=== PATIENT | female | born 1955 | race Caucasian/White ===

== ENCOUNTER 2017-04-24 10:32 | Inpatient (IN) | payer OTHER ==
[2017-04-24 11:18] VITALS: BMI 20.7
--- NOTE | 2017-04-24 11:51 | HP ---
COWS - Scale Resting Pulse: 2= [place] 101-120 Sweatin= Chills/Flushing Restless Observation: 1= Difficult to Sit Still Pupil Size: 0= Normal to Room Light Bone or Joint Aches: 2= Severe Diffuse Aches Runny Nose/ Eye Tearin= Runny Nose/Eyes GI Upset > 30mins: 2= Nausea/Diarrhea Tremor Observation: 2= Slight Tremor Visible Yawning Observation: 1= 1-2x During Session Anxiety or Irritability: 1=Feels Anxious/Irritable Goose Flesh Skin: 0=Smooth Skin COWS Score: 14 Admission ROS BHS - HPI Chief Complaint: I'm too old, I need to stop, I just want to feel better and learn my lesson. My family doesn't know, my daughter is a nurse - she'd if she knew, they just think I'm getting old Allergies/Adverse Reactions: Allergies Allergy/AdvReac Type Severity Reaction Status Date / Time No Known Allergies Allergy Verified 04/24/17 11:42 History of Present Illness: 61 yo woman here for detox from oxycodone - no seizures, no black outs, previous detox here 2013 - relapsed after mom also in 2013. Never on suboxone or methadone program. Exam Limitations: Clinical Condition - Ebola screening Have you traveled outside of the country in the last 21 days: No (N) Have you had contact with anyone from an Ebola affected area: No Have you been sick,other than usual withdrawal symptoms: No Do you have a fever: No - Review of Systems Constitutional: Loss of Appetite, Changes in sleep, Weakness EENT: reports: Blurred Vision, Nose Congestion Respiratory: reports: SOB with Exertion Cardiac: reports: No Symptoms Reported GI: reports: Nausea, Poor Fluid Intake : reports: Frequency, Flank Pain Musculoskeletal: reports: Back Pain, Muscle Pain Integumentary: reports: No Symptoms Reported Neuro: reports: Headache, Tremors Endocrine: reports: No Symptoms Reported Hematology: reports: No Symptoms Reported Psychiatric: reports: Judgement Intact, Mood/Affect Appropiate, Orientated x3, Anxious Other Systems: Reviewed and Negative Patient History - Patient Medical History Hx Anemia: No Hx Asthma: No Hx Chronic Obstructive Pulmonary Disease (COPD): Yes (not treated ) Hx Cardiac Disorders: No Hx Hypertension: No Hx Hypercholesterolemia: No HX Cerebrovascular Accident: No Hx Seizures: No Hx Diabetes: No Hx Gastrointestinal Disorders: No Hx Genitourinary Disorders: No Hx Sexually Transmitted Disorders: No Hx Renal Disease (ESRD): No Hx Thyroid Disease: No Hx Human Immunodeficiency Virus (HIV): No Hx Hepatitis C: No Hx Depression: Yes (since mother's 2013) Hx Suicide Attempt: No Hx Schizophrenia: No - Patient Surgical History Past Surgical History: Yes Hx Neurologic Surgery: No Hx Cataract Extraction: No Hx Cardiac Surgery: No Hx Lung Surgery: No Hx Breast Surgery: No Hx Breast Biopsy: No Hx Abdominal Surgery: No Hx Appendectomy: No Hx Cholecystectomy: No Hx Genitourinary Surgery: No Hx Section: No Hx Orthopedic Surgery: No Other Surgical History: TUBAL IN 1975 Anesthesia Reaction: No - PPD History Previous Implant?: Yes Documented Results: Negative w/proof Implanted On Prior [facility] Admission?: Yes Date: 06/07/13 Results: 0mm PPD to be Administered?: Yes - Reproductive History Patient is a Female of Child Bearing Age (11 -55 yrs old): No Patient : No - Smoking Cessation Smoking history: Current every day smoker Have you smoked in the past 12 months: Yes Aproximately how many cigarettes per day: 4 Hx Chewing Tobacco Use: No Initiated information on smoking cessation: Yes 'Breaking Loose' booklet given: 04/24/17 (give on floor) - Substance & Tx. History Hx Alcohol Use: No Hx Substance Use: Yes Substance Use Type: Opiates Hx Substance Use Treatment: Yes (detox) - Substances Abused percocet Route: Oral Frequency: Daily Amount used: ten percocet 10/325 mg tabs Age of first use: 58 Date of Last Use: 04/21/17 marijuana Route: Smoking Frequency: 1-3 times last 30 days Amount used: unknown Age of first use: 21 Date of Last Use: 04/17/17 Family Disease History - Family Disease History Family Disease History: Heart Disease: Mother (, HOLE IN HEART), Other: Father (, brain aneurysm), Brother (two brothers - healthy, ? etoh), Son (one - adult - healthy), Daughter (one - adult - healthy) Admission Physical Exam BHS - Vital Signs Vital Signs: Vital Signs - 24 hr 04/24/17 11:00 Temperature 97.6 F Pulse Rate 112 H Respiratory 18 Rate Blood Pressure 148/89 - Physical General Appearance: Yes: Nourished, Appropriately Dressed, Moderate Distress, Anxious HEENTM: Yes: EOMI, Hearing grossly Normal, Normocephalic, Normal Voice, Pharynx Normal Respiratory: Yes: No Respiratory Distress, Wheezing Neck: Yes: No masses,lesions,Nodules Breast: Yes: Breast Exam Deferred Cardiology: Yes: Regular Rhythm, Regular Rate Abdominal: Yes: Flat, Soft Genitourinary: Yes: Hesitency Back: Yes: Normal Inspection Musculoskeletal: Yes: full range of Motion, Gait Steady, Back pain, Muscle Pain Extremities: Yes: Normal Inspection, Normal Range of Motion, Non-Tender, Tremors Neurological: Yes: Fully Oriented, Alert, Normal Mood/Affect, Normal Response Integumentary: Yes: Normal Color, Warm Lymphatic: Yes: Within Normal Limits - Diagnostic (1) Opioid dependence with withdrawal Current Visit: Yes Status: Chronic (2) Emphysematous COPD Current Visit: Yes Status: Chronic Qualifiers: Emphysema type: unspecified Qualified Code(s): J43.9 - Emphysema, unspecified (3) Nicotine dependence Current Visit: Yes Status: Chronic Qualifiers: Nicotine product type: cigarettes (4) Dehydration Current Visit: Yes Status: Chronic Cleared for Admission [facility] - Detox or Rehab [facility] Level of Care: Medically Managed Detox Regimen/Protocol: Methadone [facility] Breath Alcohol Content Breath Alcohol Content: 0 Urine Pregancy Test - Result Urine Test Results: Negative- NO Line Present Urine Drug Screen - Results Urine Drug Screen Results: THC-Marijuana, BAR-Barbiturates, MTD-Methadone, TCA- Tricyclic Antidepress, OXY-Oxycodone
[2017-04-24] MEDS ORDERED: ACETAMINOPHEN 325 MG TABLET (FP) PO PRN (12:01)
[2017-04-24] MEDS ORDERED: IBUPROFEN 400 MG TABLET (FP) PO PRN (12:01)
[2017-04-24] MEDS ORDERED: LOPERAMIDE HCL 2 MG CAPSULE PO PRN (12:01)
[2017-04-24] MEDS ORDERED: P-EPHED 60MG/TRIPROLIDI 2.5MG TABLET PO PRN (12:01)
[2017-04-24] MEDS ORDERED: MENTHOL/PHENOL 1 EACH UD MM PRN (12:01)
[2017-04-24] MEDS ORDERED: MAGNESIUM HYDROX 2400MG/30ML ORAL SUSPENSION 30 ML CUP PO PRN (12:01)
[2017-04-24] MEDS ORDERED: MAGNESIUM CITRATE 300 ML BOTTLE PO PRN (12:01)
[2017-04-24] MEDS ORDERED: NICOTINE POLACRILEX 2 MG GUM BUC PRN (12:01)
[2017-04-24] MEDS ORDERED: guaiFENesin/D-METHORPHAN HB 10 ML UNIT-DOSE CUPS PO PRN (12:01)
[2017-04-24] MEDS ORDERED: MAG HYDROX/AL HYDROX/SIMETH 30 ML UNIT-DOSE CUP PO PRN (12:01)
[2017-04-24] MEDS ORDERED: ALBUTEROL SO4 2.5/IPRATROPIUM 0.5 INH SOL 3 ML VIAL.NEB. NEB PRN (12:04)
[2017-04-24] MEDS ORDERED: ALBUTEROL SO4 18 GM HFA INHALER IH PRN (12:05)
[2017-04-24] MEDS ORDERED: METHADONE HCL 10 MG TABLET (FOR DETOX USE ONLY) PO ONE ×3 (13:30→23:00)
[2017-04-24] MEDS: diazePAM 5 MG TABLET PO PRN ×2 (17:15→22:45)
[2017-04-24 18:16] LABS: URINE APPEARANCE TURBID; URINE BILIRUBIN NEGATIVE (NEGATIVE); URINE BLOOD NEGATIVE (NEGATIVE); URINE COLOR AMBER; URINE GLUCOSE (UA) NEGATIVE (NEGATIVE); URINE KETONE TRACE (NEGATIVE); URINE NITRITE NEGATIVE (NEGATIVE); URINE UROBILINOGEN NEGATIVE mg/dL (0.2-1.0)
[2017-04-24 18:17] LABS: URINE LEUK ESTERASE 1+ (NEGATIVE); URINE PROTEIN 1+ (NEGATIVE)
[2017-04-24 18:19] LABS: URINE BACTERIA MODERATE /hpf (NONE SEEN); URINE HYALINE CAST 33 /lpf; URINE MUCUS MANY
[2017-04-24] MEDS: THIAMINE HCL 100 MG TABLET (FP) PO SCH (22:45)
[2017-04-25] MEDS: diazePAM 5 MG TABLET PO PRN ×3 (06:03→17:32)
--- NOTE | 2017-04-25 09:04 | PN ---
BHS COWS - Scale Resting Pulse: 1= [place] 81-100 Sweatin= Chills/Flushing Restless Observation: 1= Difficult to Sit Still Pupil Size: 0= Normal to Room Light Bone or Joint Aches: 2= Severe Diffuse Aches Runny Nose/ Eye Tearin= Runny Nose/Eyes GI Upset > 30mins: 1= Stomach Cramp Tremor Observation of Outstretched Hands: 2= Slight Tremor Visible Yawning Observation: 2= >3x During Session Anxiety or Irritability: 1=Feels Anxious/Irritable Goose Flesh Skin: 0=Smooth Skin COWS Score: 13 BHS Progress Note (SOAP) Subjective: sweat joint ache muscle pain gi distress tremor restlessness irritable anxiety agitative Objective: 04/25/17 09:03 Vital Signs Temperature 96.4 F L 04/25/17 07:53 Pulse Rate 88 04/25/17 07:53 Respiratory Rate 18 04/25/17 07:53 Blood Pressure 128/94 04/25/17 07:53 O2 Sat by Pulse Oximetry (%) Laboratory Last Values Urine Color Mirtha 04/24/17 18:05 Urine Appearance Turbid 04/24/17 18:05 Urine pH 5.0 (5.0-8.0) 04/24/17 18:05 Ur Specific [place] 1.025 (1.001-1.035) 04/24/17 18:05 Urine Protein 1+ (NEGATIVE) H 04/24/17 18:05 Urine Glucose (UA) Negative (NEGATIVE) 04/24/17 18:05 Urine Ketones Trace (NEGATIVE) H 04/24/17 18:05 Urine Blood Negative (NEGATIVE) 04/24/17 18:05 Urine Nitrite Negative (NEGATIVE) 04/24/17 18:05 Urine Bilirubin Negative (NEGATIVE) 04/24/17 18:05 Urine Urobilinogen Negative mg/dL (0.2-1.0) 04/24/17 18:05 Ur Leukocyte Esterase 1+ (NEGATIVE) H 04/24/17 18:05 Urine WBC (Auto) 19 /hpf (3-5) 04/24/17 18:05 Urine RBC (Auto) 2 /hpf (0-3) 04/24/17 18:05 Urine Bacteria Moderate /hpf (NONE SEEN) 04/24/17 18:05 Hyaline Casts 33 /lpf 04/24/17 18:05 Urine Mucus Many 04/24/17 18:05 lab noted repeat ua Assessment: 04/25/17 09:04 withdrawal sx Plan: continue detox increase oral fluid repeat ua
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
[2017-04-25] MEDS ORDERED: METHADONE HCL 10 MG TABLET (FOR DETOX USE ONLY) PO ONE (10:00)
[2017-04-25] MEDS: hydrOXYzine PAMOATE 50 MG CAPSULE (FP) PO PRN (10:25)
[2017-04-25] MEDS: PRENATAL VITAMINS W/ FOLIC ACID TABLET (FP) PO SCH (10:27)
[2017-04-25] MEDS: ASPIRIN 81 MG CHEWABLE TABLETS PO SCH (10:27)
[2017-04-25 10:51] LABS: HEMATOCRIT 42.7 % (32.4-45.2); HEMOGLOBIN 14.6 GM/dL (10.7-15.3); MCH 32.2 pg (25.7-33.7); MCHC 34.2 g/dl (32.0-36.0); MEAN CELL VOLUME 94.2 fl (80-96); MEAN PLT VOLUME 8.1 fl (7.5-11.1); PLATELET COUNT 385 K/MM3 (134-434); RBC 4.54 M/mm3 (3.60-5.2); RDW 13.3 % (11.6-15.6); WHITE BLOOD COUNT 9.9 K/mm3 (4.0-10.0)
[2017-04-25 10:56] LABS: ALBUMIN 3.8 g/dl (3.4-5.0); ANION GAP 14 (8-16); BILIRUBIN,TOTAL 0.5 mg/dL (0.2-1.0); BLOOD UREA NITROGEN 24 mg/dL (7-18); CALCIUM 8.6 mg/dL (8.5-10.1); CHLORIDE 89 mmol/L (98-107); CO2 34 mmol/L (21-32); GLUCOSE,RANDOM 78 mg/dL (74-106); POTASSIUM 3.6 mmol/L (3.5-5.1); SGOT/AST 13 U/L (15-37); SGPT/ALT 15 U/L (12-78); SODIUM 137 mmol/L (136-145); TOT PROT 7.4 g/dl (6.4-8.2)
[2017-04-25 10:57] LABS: ALK PHOS 111 U/L (45-117)
[2017-04-25 17:43] LABS: URINE APPEARANCE TURBID; URINE BILIRUBIN NEGATIVE (NEGATIVE); URINE BLOOD NEGATIVE (NEGATIVE); URINE COLOR AMBER; URINE GLUCOSE (UA) NEGATIVE (NEGATIVE); URINE KETONE NEGATIVE (NEGATIVE); URINE NITRITE NEGATIVE (NEGATIVE); URINE UROBILINOGEN NEGATIVE mg/dL (0.2-1.0)
[2017-04-25 17:45] LABS: URINE LEUK ESTERASE 3+ (NEGATIVE); URINE PROTEIN 1+ (NEGATIVE)
[2017-04-25 17:49] LABS: EPI CELLS RARE /HPF (FEW); URINE BACTERIA MODERATE /hpf (NONE SEEN); URINE HYALINE CAST 26 /lpf; URINE MUCUS FEW
[2017-04-25] MEDS: THIAMINE HCL 100 MG TABLET (FP) PO SCH (22:55)
--- NOTE | 2017-04-26 00:12 | EKG ---
Test Reason : Blood Pressure : / mmHG Vent. Rate : 091 BPM Atrial Rate : 091 BPM P-R Int : 110 ms QRS Dur : 090 ms QT Int : 344 ms P-R-T Axes : 034 080 043 degrees QTc Int : 423 ms SINUS RHYTHM WITH SINUS ARRHYTHMIA WITH SHORT TN OTHERWISE NORMAL ECG NO PREVIOUS ECGS AVAILABLE Confirmed by BRANDI YI MD ([id number]) on 04/26/2017 12:11:51 AM Referred By: Confirmed By:BRANDI YI MD
[2017-04-26] MEDS: diazePAM 5 MG TABLET PO PRN ×5 (05:36→22:43)
[2017-04-26] MEDS ORDERED: CYCLOBENZAPRINE HCL 10 MG TABLET (FP) PO ONE (08:32)
[2017-04-26] MEDS ORDERED: cloNIDine HCL 0.1 MG TABLET PO ONE (08:33)
[2017-04-26] MEDS: ASPIRIN 81 MG CHEWABLE TABLETS PO SCH (09:43)
[2017-04-26] MEDS: PRENATAL VITAMINS W/ FOLIC ACID TABLET (FP) PO SCH (09:43)
[2017-04-26] MEDS ORDERED: METHADONE HCL 5 MG TABLET (FOR DETOX USE ONLY) PO ONE (10:00)
[2017-04-26] MEDS: cloNIDine HCL 0.1 MG TABLET PO SCH ×2 (10:00→22:20)
--- NOTE | 2017-04-26 11:24 | PN ---
BHS COWS - Scale Resting Pulse: 0= [place] 80 or Below Sweatin= Chills/Flushing Restless Observation: 3= Extraneous Movement Pupil Size: 1= Pupils >than Normal Bone or Joint Aches: 2= Severe Diffuse Aches Runny Nose/ Eye Tearin= Runny Nose/Eyes GI Upset > 30mins: 2= Nausea/Diarrhea Tremor Observation of Outstretched Hands: 2= Slight Tremor Visible Yawning Observation: 1= 1-2x During Session Anxiety or Irritability: 2=Irritable/Anxious Goose Flesh Skin: 0=Smooth Skin COWS Score: 16 S Progress Note (SOAP) Subjective: ALERT,IRRITABLE,ANXIOUS,INTERRUPTED SLEEP,TREMOR,PAIN IN THE BODY AND BACK Objective: 04/26/17 11:20 Vital Signs Temperature 97.6 F 04/26/17 06:59 Pulse Rate 71 04/26/17 06:59 Respiratory Rate 19 04/26/17 06:59 Blood Pressure 80/50 04/26/17 06:59 O2 Sat by Pulse Oximetry (%) EKG NSR WITH SINUS ARRHYTHMIA,SHORT CA, QT 344/423 NO CHEST PAIN,NO SOB,NO DIZZINESS Laboratory Last Values WBC 9.9 K/mm3 (4.0-10.0) 04/25/17 08:00 RBC 4.54 M/mm3 (3.60-5.2) 04/25/17 08:00 Hgb 14.6 GM/dL (10.7-15.3) 04/25/17 08:00 Hct 42.7 % (32.4-45.2) 04/25/17 08:00 MCV 94.2 fl (80-96) 04/25/17 08:00 MCH 32.2 pg (25.7-33.7) 04/25/17 08:00 MCHC 34.2 g/dl (32.0-36.0) 04/25/17 08:00 RDW 13.3 % (11.6-15.6) 04/25/17 08:00 Plt Count 385 K/MM3 (134-434) 04/25/17 08:00 MPV 8.1 fl (7.5-11.1) 04/25/17 08:00 Sodium 137 mmol/L (136-145) 04/25/17 08:00 Potassium 3.6 mmol/L (3.5-5.1) 04/25/17 08:00 Chloride 89 mmol/L (98-107) L 04/25/17 08:00 Carbon Dioxide 34 mmol/L (21-32) H 04/25/17 08:00 Anion Gap 14 (8-16) 04/25/17 08:00 BUN 24 mg/dL (7-18) H 04/25/17 08:00 Creatinine 1.0 mg/dL (0.55-1.02) 04/25/17 08:00 Creat Clearance w eGFR 56.37 (>60) 04/25/17 08:00 Random Glucose 78 mg/dL (74-106) 04/25/17 08:00 Calcium 8.6 mg/dL (8.5-10.1) 04/25/17 08:00 Total Bilirubin 0.5 mg/dL (0.2-1.0) 04/25/17 08:00 AST 13 U/L (15-37) L 04/25/17 08:00 ALT 15 U/L (12-78) 04/25/17 08:00 Alkaline Phosphatase 111 U/L (45-117) 04/25/17 08:00 Total Protein 7.4 g/dl (6.4-8.2) 04/25/17 08:00 Albumin 3.8 g/dl (3.4-5.0) 04/25/17 08:00 Urine Color Mirtha 04/25/17 09:54 Urine Appearance Turbid 04/25/17 09:54 Urine pH 5.0 (5.0-8.0) 04/25/17 09:54 Ur Specific [place] 1.023 (1.001-1.035) 04/25/17 09:54 Urine Protein 1+ (NEGATIVE) H 04/25/17 09:54 Urine Glucose (UA) Negative (NEGATIVE) 04/25/17 09:54 Urine Ketones Negative (NEGATIVE) 04/25/17 09:54 Urine Blood Negative (NEGATIVE) 04/25/17 09:54 Urine Nitrite Negative (NEGATIVE) 04/25/17 09:54 Urine Bilirubin Negative (NEGATIVE) 04/25/17 09:54 Urine Urobilinogen Negative mg/dL (0.2-1.0) 04/25/17 09:54 Ur Leukocyte Esterase 3+ (NEGATIVE) H D 04/25/17 09:54 Urine WBC (Auto) 27 /hpf (3-5) 04/25/17 09:54 Urine RBC (Auto) 3 /hpf (0-3) 04/25/17 09:54 Ur Epithelial Cells Rare /HPF (FEW) 04/25/17 09:54 Urine Bacteria Moderate /hpf (NONE SEEN) 04/25/17 09:54 Hyaline Casts 26 /lpf 04/25/17 09:54 Urine Mucus Few 04/25/17 09:54 RPR Titer Nonreactive (NONREACTIVE) 04/25/17 08:00 04/26/17 11:23 Assessment: 04/26/17 11:23 WITHDRAWAL SYMPTOM Plan: CONTINUE DETOX,ENCOURAGE ORAL FLUID,BUN IS 24
[2017-04-26] MEDS: THIAMINE HCL 100 MG TABLET (FP) PO SCH (22:19)
[2017-04-26] MEDS: ZOLPIDEM TARTRATE 5 MG TABLET PO PRN (22:20)
[2017-04-26] MEDS: CYCLOBENZAPRINE HCL 10 MG TABLET (FP) PO PRN (22:21)
[2017-04-27] MEDS: diazePAM 5 MG TABLET PO PRN ×2 (06:04→10:22)
--- NOTE | 2017-04-27 09:43 | PN ---
S Progress Note (SOAP) Subjective: ALERT,IRRITABLE,ANXIOUS,INTERRUPTED SLEEP,TREMOR,PAIN IN THE BODY AND BACK Objective: 04/27/17 09:41 Vital Signs Temperature 97.9 F 04/27/17 09:32 Pulse Rate 90 04/27/17 09:32 Respiratory Rate 18 04/27/17 09:32 Blood Pressure 112/71 04/27/17 09:32 O2 Sat by Pulse Oximetry (%) Assessment: 04/27/17 09:41 WITHDRAWAL SYMPTOM Plan: CONTINUE DETOX,ENCOURAGE ORAL FLUID
--- NOTE | 2017-04-27 09:46 | PN ---
BHS Progress Note Note: PATIENT HAS NO URINARY SYMPTOM,REPEAT UA PENDING
[2017-04-27] MEDS ORDERED: METHADONE HCL 5 MG TABLET (FOR DETOX USE ONLY) PO ONE (10:00)
[2017-04-27 10:14] LABS: URINE APPEARANCE CLEAR; URINE BILIRUBIN NEGATIVE (NEGATIVE); URINE BLOOD NEGATIVE (NEGATIVE); URINE COLOR LTYELLOW; URINE GLUCOSE (UA) NEGATIVE (NEGATIVE); URINE KETONE NEGATIVE (NEGATIVE); URINE NITRITE NEGATIVE (NEGATIVE); URINE PROTEIN NEGATIVE (NEGATIVE); URINE UROBILINOGEN NEGATIVE mg/dL (0.2-1.0)
[2017-04-27 10:17] LABS: URINE LEUK ESTERASE 3+ (NEGATIVE)
[2017-04-27 10:19] LABS: URINE BACTERIA RARE /hpf (NONE SEEN); URINE MUCUS RARE
[2017-04-27] MEDS: cloNIDine HCL 0.1 MG TABLET PO SCH ×2 (10:19→22:40)
[2017-04-27] MEDS: ASPIRIN 81 MG CHEWABLE TABLETS PO SCH (10:19)
[2017-04-27] MEDS: PRENATAL VITAMINS W/ FOLIC ACID TABLET (FP) PO SCH (10:19)
[2017-04-27] MEDS: hydrOXYzine PAMOATE 50 MG CAPSULE (FP) PO PRN (17:34)
[2017-04-27] MEDS ORDERED: diazePAM 5 MG TABLET PO ONE (19:00)
[2017-04-27] MEDS: CYCLOBENZAPRINE HCL 10 MG TABLET (FP) PO PRN (19:01)
[2017-04-27] MEDS: ZOLPIDEM TARTRATE 5 MG TABLET PO PRN (22:40)
[2017-04-27] MEDS: THIAMINE HCL 100 MG TABLET (FP) PO SCH (22:40)
--- NOTE | 2017-04-28 09:50 | PN ---
S Progress Note (SOAP) Subjective: ALERT,IRRITABLE,ANXIOUS,INTERRUPTED SLEEP, Objective: 04/28/17 09:48 Vital Signs Temperature 98.2 F 04/28/17 06:00 Pulse Rate 70 04/28/17 06:00 Respiratory Rate 18 04/28/17 06:00 Blood Pressure 107/53 04/28/17 06:00 O2 Sat by Pulse Oximetry (%) 04/28/17 09:49 Laboratory Results - last 24 hr 04/27/17 07:00 Urine Color Ltyellow Urine Appearance Clear Urine pH 7.0 D Ur Specific [place] 1.017 Urine Protein Negative Urine Glucose (UA) Negative Urine Ketones Negative Urine Blood Negative Urine Nitrite Negative Urine Bilirubin Negative Urine Urobilinogen Negative Ur Leukocyte Esterase 3+ H Urine WBC (Auto) 7 Urine RBC (Auto) <1 Urine Bacteria Rare Urine Mucus Rare Assessment: 04/28/17 09:48 WITHDRAWAL SYMPTOM Plan: CONTINUE DETOX,NO URINARY SYMPTOM,DISCHARGE IN AM
[2017-04-28] MEDS ORDERED: METHADONE HCL 10 MG TABLET (FOR DETOX USE ONLY) PO ONE (10:00)
[2017-04-28] MEDS: PRENATAL VITAMINS W/ FOLIC ACID TABLET (FP) PO SCH (10:58)
[2017-04-28] MEDS: cloNIDine HCL 0.1 MG TABLET PO SCH ×2 (10:58→22:54)
[2017-04-28] MEDS: ASPIRIN 81 MG CHEWABLE TABLETS PO SCH (10:58)
[2017-04-28] MEDS: hydrOXYzine PAMOATE 50 MG CAPSULE (FP) PO PRN ×3 (11:01→22:54)
[2017-04-28] MEDS ORDERED: diphenhydrAMINE HCL 25 MG CAPSULE (FP) PO ONE (18:58)
[2017-04-28] MEDS ORDERED: diphenhydrAMINE HCL 50 MG CAPSULE PO ONE (19:00)
[2017-04-28] MEDS: ZOLPIDEM TARTRATE 5 MG TABLET PO PRN (22:54)
[2017-04-28] MEDS: CYCLOBENZAPRINE HCL 10 MG TABLET (FP) PO PRN (22:54)
[2017-04-28] MEDS: THIAMINE HCL 100 MG TABLET (FP) PO SCH (22:55)
--- NOTE | 2017-04-29 00:46 | PN ---
BHS Progress Note (SOAP) Subjective: Patient is very anxious and complains of interrupted sleep Objective: 04/29/17 00:49 Vital Signs Temperature 98.1 F 04/29/17 00:15 Pulse Rate 80 04/29/17 00:15 Respiratory Rate 18 04/29/17 00:30 Blood Pressure 118/81 04/29/17 00:15 O2 Sat by Pulse Oximetry (%) Laboratory Last Values WBC 9.9 K/mm3 (4.0-10.0) 04/25/17 08:00 RBC 4.54 M/mm3 (3.60-5.2) 04/25/17 08:00 Hgb 14.6 GM/dL (10.7-15.3) 04/25/17 08:00 Hct 42.7 % (32.4-45.2) 04/25/17 08:00 MCV 94.2 fl (80-96) 04/25/17 08:00 MCH 32.2 pg (25.7-33.7) 04/25/17 08:00 MCHC 34.2 g/dl (32.0-36.0) 04/25/17 08:00 RDW 13.3 % (11.6-15.6) 04/25/17 08:00 Plt Count 385 K/MM3 (134-434) 04/25/17 08:00 MPV 8.1 fl (7.5-11.1) 04/25/17 08:00 Sodium 137 mmol/L (136-145) 04/25/17 08:00 Potassium 3.6 mmol/L (3.5-5.1) 04/25/17 08:00 Chloride 89 mmol/L (98-107) L 04/25/17 08:00 Carbon Dioxide 34 mmol/L (21-32) H 04/25/17 08:00 Anion Gap 14 (8-16) 04/25/17 08:00 BUN 24 mg/dL (7-18) H 04/25/17 08:00 Creatinine 1.0 mg/dL (0.55-1.02) 04/25/17 08:00 Creat Clearance w eGFR 56.37 (>60) 04/25/17 08:00 Random Glucose 78 mg/dL (74-106) 04/25/17 08:00 Calcium 8.6 mg/dL (8.5-10.1) 04/25/17 08:00 Total Bilirubin 0.5 mg/dL (0.2-1.0) 04/25/17 08:00 AST 13 U/L (15-37) L 04/25/17 08:00 ALT 15 U/L (12-78) 04/25/17 08:00 Alkaline Phosphatase 111 U/L (45-117) 04/25/17 08:00 Total Protein 7.4 g/dl (6.4-8.2) 04/25/17 08:00 Albumin 3.8 g/dl (3.4-5.0) 04/25/17 08:00 Urine Color Ltyellow 04/27/17 07:00 Urine Appearance Clear 04/27/17 07:00 Urine pH 7.0 (5.0-8.0) D 04/27/17 07:00 Ur Specific [place] 1.017 (1.001-1.035) 04/27/17 07:00 Urine Protein Negative (NEGATIVE) 04/27/17 07:00 Urine Glucose (UA) Negative (NEGATIVE) 04/27/17 07:00 Urine Ketones Negative (NEGATIVE) 04/27/17 07:00 Urine Blood Negative (NEGATIVE) 04/27/17 07:00 Urine Nitrite Negative (NEGATIVE) 04/27/17 07:00 Urine Bilirubin Negative (NEGATIVE) 04/27/17 07:00 Urine Urobilinogen Negative mg/dL (0.2-1.0) 04/27/17 07:00 Ur Leukocyte Esterase 3+ (NEGATIVE) H 04/27/17 07:00 Urine WBC (Auto) 7 /hpf (3-5) 04/27/17 07:00 Urine RBC (Auto) <1 /hpf (0-3) 04/27/17 07:00 Ur Epithelial Cells Rare /HPF (FEW) 04/25/17 09:54 Urine Bacteria Rare /hpf (NONE SEEN) 04/27/17 07:00 Hyaline Casts 26 /lpf 04/25/17 09:54 Urine Mucus Rare 04/27/17 07:00 RPR Titer Nonreactive (NONREACTIVE) 04/25/17 08:00 Hep C Ab Diagnostic <0.1 s/co ratio (0.0-0.9) 04/25/17 08:00 Assessment: 04/29/17 00:50 Withdrawal symptoms Inability to fall asleep 04/29/17 00:53 Plan: Benadryl 50mg capsule oral once
[2017-04-29] MEDS ORDERED: METHADONE HCL 5 MG TABLET (FOR DETOX USE ONLY) PO ONE (06:00)
--- NOTE | 2017-04-29 08:32 | PN ---
S Progress Note (SOAP) Subjective: ALERT,NO COMPLAINT Objective: 04/29/17 08:31 Vital Signs Temperature 97.5 F L 04/29/17 06:15 Pulse Rate 78 04/29/17 06:15 Respiratory Rate 19 04/29/17 06:15 Blood Pressure 130/76 04/29/17 06:15 O2 Sat by Pulse Oximetry (%) Assessment: 04/29/17 08:31 DETOX COMPLETED.NO WITHDRAWAL SYMPTOM Plan: DISCHARGE TODAY,FOLLOW UP WITH AFTER CARE PROGRAM ARRANGEMENT
--- NOTE | 2017-04-29 08:36 | DS ---
[facility] Detox Discharge Summary Admission Date: 04/24/17 Discharge Date: 04/29/17 - History Present History: Opioid Dependence Additional Comments: FOLLOW UP WITH AFTER CARE PROGRAM ARRANGEMENT Pertinent Past History: COPD NICOTINE DEPENDENCE SUBSTANCE INDUCED SLEEP DISORDER - Physical Exam Results Vital Signs: Vital Signs Temperature 97.5 F L 04/29/17 06:15 Pulse Rate 78 04/29/17 06:15 Respiratory Rate 19 04/29/17 06:15 Blood Pressure 130/76 04/29/17 06:15 O2 Sat by Pulse Oximetry (%) Pertinent Admission Physical Exam Findings: WITHDRAWAL SIGNS AND SYMPTOM - Treatment Hospital Course: Detox Protocol Followed, Detoxed Safely, Responded well, Discharged Condition Good Patient has Accepted a Rehab Referral to: DECLINED - Medication Discharge Medications: Ambulatory Orders NK [No Known Home Medication] 04/24/17 - Diagnosis (1) Opioid dependence with withdrawal Current Visit: Yes Status: Acute (2) Substance-induced sleep disorder Current Visit: Yes Status: Acute (3) Emphysematous COPD Current Visit: Yes Status: Chronic Qualifiers: Emphysema type: unspecified Qualified Code(s): J43.9 - Emphysema, unspecified (4) Nicotine dependence Current Visit: Yes Status: Chronic Qualifiers: Nicotine product type: cigarettes (5) Substance-induced anxiety disorder Current Visit: No Status: Acute - AMA Did Patient Leave Against Medical Advice: No
[2017-04-29 10:21] VITALS: TEMP 97.9
[2017-04-29] MEDS: ASPIRIN 81 MG CHEWABLE TABLETS PO SCH (10:27)
[2017-04-29] MEDS: cloNIDine HCL 0.1 MG TABLET PO SCH (10:27)
[2017-04-29] MEDS: PRENATAL VITAMINS W/ FOLIC ACID TABLET (FP) PO SCH (10:27)
[2017-04-29] MEDS: hydrOXYzine PAMOATE 50 MG CAPSULE (FP) PO PRN (10:29)
[2017-04-29 13:56] VITALS: BP 113/68; PULSE 89
--- NOTE | 2017-04-29 14:17 | PN ---
[facility] Progress Note (SOAP) Subjective: I want to live, I want to not every take another pill - I want to try the suboxone Objective: 122/81 p 96 alert, oriented, ambulatory COWS = 7 - still with some anxiety, GI upset completed opiate detox 04/25-04/29/17 at [facility] and here for suboxone to continue opiate dependence treatment has appt for [facility] intake on 05/03/17 interested in a closer suboxone program - gave her number for [facility] checked Assessment: opiate dependence nicotine dependence COPD anxiety Plan: start suboxone 4mg, - counseled to let dissolve completely under tongue, need to avoid all opiates opiate agreement reviewed and signed, safekeeping emphasized for intake at [facility] 05/03 at 2pm patient will call [facility] to see if she can get an appointment there as it is a closer suboxone program than coming here from where she lives counseled nicotine cessation - not ready refer for psych VISIT TIME: 30 minutes
== END 2017-04-29 13:50 | disposition home or self-care (01) | DRG 773 ==
LOC: YASAS 10:32 → Y6N 14:41
PROVIDERS: ADMIT Internal Medicine; ATTEND Internal Medicine
PROC: HZ2ZZZZ Detoxification Services for Substance Abuse Treatment (ICD-10-PCS; principal; 2017-04-24)
DX: F11.23 Opioid dependence with withdrawal (principal); F17.210 Nicotine dependence, cigarettes, uncomplicated; F19.282 Other psychoactive substance dependence with psychoactive substance-induced sleep disorder; F19.280 Other psychoactive substance dependence with psychoactive substance-induced anxiety disorder; J43.9 Emphysema, unspecified
CPT/HCPCS: 36415; 80053; 81003; 81015; 85027; 86593; 93005; 93010; J0735

== ENCOUNTER 2018-07-18 10:39 | Inpatient (IN) | payer OTHER ==
[2018-07-18 13:06] VITALS: BMI 19.0
--- NOTE | 2018-07-18 14:50 | HP ---
COWS - Scale Resting Pulse: 2= [place] 101-120 Sweatin= Chills/Flushing Restless Observation: 1= Difficult to Sit Still Pupil Size: 1= Pupils >than Normal Bone or Joint Aches: 2= Severe Diffuse Aches Runny Nose/ Eye Tearin= Runny Nose/Eyes GI Upset > 30mins: 2= Nausea/Diarrhea Tremor Observation: 2= Slight Tremor Visible Yawning Observation: 1= 1-2x During Session Anxiety or Irritability: 2=Irritable/Anxious Goose Flesh Skin: 0=Smooth Skin COWS Score: 16 CIWA Score - Admission Criteria OASAS Guidelines: Admission for Medically Managed Detox: Requires at least one of the followin. CIWA greater than 12 2. Seizures within the past 24 hours 3. Delirium tremens within the past 24 hours 4. Hallucinations within the past 24 hours 5. Acute intervention needed for co occurring medical disorder 6. Acute intervention needed for co occurring psychiatric disorder 7. Severe withdrawal that cannot be handled at a lower level of care (continued vomiting, continued diarrhea, abnormal vital signs) requiring intravenous medication and/or fluids 8. Admission ROS S - HPI Chief Complaint: i need help to stop using percocet Allergies/Adverse Reactions: Allergies Allergy/AdvReac Type Severity Reaction Status Date / Time No Known Allergies Allergy Verified 07/18/18 12:53 History of Present Illness: this 62 years old female with percocet dependence,withdrawal symptom,failed out patient program; nicotine dependence 3 cigarette/day depression,insomnia last detox 04/24/17 to 04/29/17 [facility] weight loss - Ebola screening Have you traveled outside of the country in the last 21 days: No (N) Have you had contact with anyone from an Ebola affected area: No Do you have a fever: No - Review of Systems Constitutional: Chills, Loss of Appetite, Malaise, Night Sweats, Changes in sleep, Weakness, Unintentional Wgt. Loss EENT: reports: Tearing, Nose Congestion Respiratory: reports: No Symptoms reported Cardiac: reports: Palpitations GI: reports: Diarrhea, Nausea, Vomiting, Abdominal cramping : reports: No Symptoms Reported Musculoskeletal: reports: Back Pain, Muscle Pain Integumentary: reports: Dryness Neuro: reports: Headache, Tremors Endocrine: reports: No Symptoms Reported, See HPI, Excessive Sweating, Flushing Hematology: reports: No Symptoms Reported Psychiatric: reports: No Sypmtoms Reported, Judgement Intact, Mood/Affect Appropiate, Orientated x3, Anxious, Depressed Other Systems: Reviewed and Negative Patient History - Patient Medical History Hx Anemia: No Hx Asthma: No Hx Chronic Obstructive Pulmonary Disease (COPD): Yes (not treated ) Hx Cancer: No Hx Cardiac Disorders: No Hx Congestive Heart Failure: No Hx Hypertension: No Hx Hypercholesterolemia: No HX Cerebrovascular Accident: No Hx Seizures: No Hx Diabetes: No Hx Gastrointestinal Disorders: No Hx Liver Disease: No Hx Genitourinary Disorders: No Hx Sexually Transmitted Disorders: No Hx Renal Disease (ESRD): No Hx Thyroid Disease: No Hx Human Immunodeficiency Virus (HIV): No Hx Hepatitis C: No Hx Depression: Yes (since mother's 2013) Hx Suicide Attempt: No Hx Schizophrenia: No Other Medical History: no suicidal,no homicidal - Patient Surgical History Past Surgical History: Yes Hx Neurologic Surgery: No Hx Cataract Extraction: No Hx Cardiac Surgery: No Hx Lung Surgery: No Hx Breast Surgery: No Hx Breast Biopsy: No Hx Abdominal Surgery: No Hx Appendectomy: No Hx Cholecystectomy: No Hx Genitourinary Surgery: No Hx Section: No Hx Orthopedic Surgery: No Other Surgical History: TUBAL IN 1975 Anesthesia Reaction: No - PPD History Previous Implant?: Yes Documented Results: Negative w/o proof Implanted On Prior [facility] Admission?: Yes Date: 06/07/13 Results: 0mm PPD to be Administered?: Yes - Reproductive History Patient is a Female of Child Bearing Age (11 -55 yrs old): No Patient : No - Smoking Cessation Smoking history: Current every day smoker Have you smoked in the past 12 months: Yes Aproximately how many cigarettes per day: 4 Hx Chewing Tobacco Use: No Initiated information on smoking cessation: Yes 'Breaking Loose' booklet given: 07/18/18 - Substance & Tx. History Hx Alcohol Use: No Hx Substance Use: Yes Substance Use Type: Marijuana, Opiates Hx Substance Use Treatment: Yes ([facility] 04/24/17 to 04/29/17) - Substances abused Other Other (specify): Percocet Substance route: Oral Frequency: Daily Amount used: 10 of 10mg/325mg percocet Age of first use: 58 Date of last use: 07/16/18 Marijuana/Hashish Substance route: Smoking Frequency: 1-3 times last 30 days Amount used: 2 draggs Age of first use: 14 Date of last use: 07/15/18 Family Disease History - Family Disease History Family Disease History: Heart Disease: Mother (, HOLE IN HEART), Other: Father (, brain aneurysm), Brother (two brothers - healthy, ? etoh), Son (one - adult - healthy), Daughter (one - adult - healthy) Admission Physical Exam [facility] - Vital Signs Vital Signs: Vital Signs - 24 hr 07/18/18 12:57 Temperature 97.8 F Pulse Rate 102 H Respiratory 18 Rate Blood Pressure 158/78 - Physical General Appearance: Yes: Moderate Distress, Tremorous, Irritable, Sweating, Anxious HEENTM: Yes: Normal ENT Inspection, LORI, Pharynx Normal Respiratory: Yes: Lungs Clear, Normal Breath Sounds, No Respiratory Distress Neck: Yes: No masses,lesions,Nodules, Supple, Trachea in good position Breast: Yes: Breast Exam Deferred Cardiology: Yes: Tachycardia Abdominal: Yes: Within Normal Limits, Normal Bowel Sounds, Non Tender, Flat, Soft, Surgical Scar Genitourinary: Yes: Within Normal Limits Back: Yes: Muscle Spasm Musculoskeletal: Yes: Back pain, Joint Stiffness, Muscle Pain Extremities: Yes: Tremors Neurological: Yes: electronic semiconductor processor II-XII NML intact, Fully Oriented, Alert, Motor Strength 5/5 Integumentary: Yes: Dry Lymphatic: Yes: Within Normal Limits - Diagnostic (1) Opioid dependence with withdrawal Current Visit: No Status: Acute (2) Dehydration Current Visit: No Status: Chronic (3) Emphysematous COPD Current Visit: No Status: Chronic Qualifiers: Emphysema type: unspecified Qualified Code(s): J43.9 - Emphysema, unspecified (4) Nicotine dependence Current Visit: No Status: Chronic Qualifiers: Nicotine product type: cigarettes (5) History of ectopic Current Visit: Yes Status: Acute (6) Weight loss Current Visit: Yes Status: Acute (7) Depression Current Visit: Yes Status: Acute Cleared for Admission [facility] - Detox or Rehab [facility] Level of Care: Medically Managed Detox Regimen/Protocol: Methadone Breathalyzer - Breathalyzer Breathalyzer: 0 Urine Drug Screen - Test Device Lot number: [id number] Expiration date: 04/07/20 - Control Is test valid?: Yes - Results Drug screen NEGATIVE: No Urine drug screen results: THC-Marijuana, OXY-Oxycodone Inpatient Rehab Admission - Rehab Decision to Admit Inpatient rehab admission?: No
[2018-07-18] MEDS ORDERED: METHOCARBAMOL 500 MG TABLET PO PRN (15:02)
[2018-07-18] MEDS ORDERED: cloNIDine HCL 0.1 MG TABLET PO PRN (15:02)
[2018-07-18] MEDS ORDERED: MAGNESIUM HYDROX 2400MG/30ML ORAL SUSPENSION 30 ML CUP PO PRN (15:02)
[2018-07-18] MEDS ORDERED: MAGNESIUM CITRATE 300 ML BOTTLE PO PRN (15:02)
[2018-07-18] MEDS ORDERED: MAG HYDROX/AL HYDROX/SIMETH 30 ML UNIT-DOSE CUP PO PRN (15:02)
[2018-07-18] MEDS ORDERED: ACETAMINOPHEN 325 MG TABLET (FP) PO PRN (15:02)
[2018-07-18] MEDS ORDERED: MENTHOL/PHENOL 1 EACH UD MM PRN (15:02)
[2018-07-18] MEDS ORDERED: BISMUTH SUBSALICYLATE 262 MG/15 ML BTL PO PRN (15:02)
[2018-07-18] MEDS ORDERED: ALBUTEROL SO4 8 GM HFA INHALER IH PRN (15:13)
[2018-07-18] MEDS ORDERED: ALBUTEROL SO4 2.5/IPRATROPIUM 0.5 INH SOL 3 ML VIAL.NEB. NEB PRN (15:15)
[2018-07-18] MEDS ORDERED: TRIMETHOBENZAMIDE HCL 200MG/2ML INJ IM PRN (15:16)
[2018-07-18] MEDS ORDERED: METHADONE HCL 10 MG TABLET (FOR DETOX USE ONLY) PO ONE ×2 (15:35→23:00)
[2018-07-18] MEDS: diazePAM 5 MG TABLET PO PRN (17:40)
[2018-07-18 18:33] LABS: HEMATOCRIT 44.1 % (32.4-45.2); HEMOGLOBIN 14.7 GM/dL (10.7-15.3); MCH 32.1 pg (25.7-33.7); MCHC 33.2 g/dl (32.0-36.0); MEAN CELL VOLUME 96.8 fl (80-96); MEAN PLT VOLUME 8.3 fl (7.5-11.1); PLATELET COUNT 453 K/MM3 (134-434); RBC 4.56 M/mm3 (3.60-5.2); RDW 13.7 % (11.6-15.6); WHITE BLOOD COUNT 6.4 K/mm3 (4.0-10.0)
[2018-07-18 18:39] LABS: ALBUMIN 4.6 g/dl (3.4-5.0); BILIRUBIN,TOTAL 0.4 mg/dL (0.2-1); BLOOD UREA NITROGEN 6.2 mg/dL (7-18); CREATININE 0.7 mg/dL (0.55-1.3); POTASSIUM 4.6 mmol/L (3.5-5.1); TOT PROT 7.8 g/dl (6.4-8.2)
[2018-07-18 18:58] LABS: EPI CELLS 0.9 /HPF (0-5/HPF); HYALINE CASTS 1 /lpf (0-8); URINE APPEARANCE CLEAR; URINE BACTERIA 21.8 /hpf (NEGATIVE); URINE BILIRUBIN NEGATIVE (NEGATIVE); URINE COLOR YELLOW; URINE GLUCOSE (UA) NEGATIVE (NEGATIVE); URINE KETONE NEGATIVE (NEGATIVE); URINE LEUK ESTERASE TRACE (NEGATIVE); URINE NITRITE NEGATIVE (NEGATIVE); URINE PROTEIN NEGATIVE (NEGATIVE); URINE RBC 1 /hpf (0-4); URINE UROBILINOGEN 0.2 mg/dL (0.2-1.0); URINE WBC 1 /hpf (0-5)
[2018-07-18] MEDS: THIAMINE HCL 100 MG TABLET (FP) PO SCH (22:14)
[2018-07-19] MEDS: hydrOXYzine PAMOATE 25 MG CAPSULE (FP) PO PRN ×2 (00:24→10:42)
[2018-07-19] MEDS: diazePAM 5 MG TABLET PO PRN ×3 (00:24→22:30)
[2018-07-19] MEDS ORDERED: METHADONE HCL 10 MG TABLET (FOR DETOX USE ONLY) PO ONE (10:00)
[2018-07-19] MEDS: PRENATAL VITAMINS W/ FOLIC ACID TABLET (FP) PO SCH (10:42)
--- NOTE | 2018-07-19 11:50 | PN ---
BHS COWS - Scale Resting Pulse: 1= [place] 81-100 Sweatin=Flushed/Facial Moisture Restless Observation: 1= Difficult to Sit Still Pupil Size: 0= Normal to Room Light Bone or Joint Aches: 1= Mild Discomfort Runny Nose/ Eye Tearin= Runny Nose/Eyes GI Upset > 30mins: 1= Stomach Cramp Tremor Observation of Outstretched Hands: 1= Tremor [place], Not Seen Yawning Observation: 1= 1-2x During Session Anxiety or Irritability: 1=Feels Anxious/Irritable Goose Flesh Skin: 0=Smooth Skin COWS Score: 11 BHS Progress Note (SOAP) Subjective: stomach cramping sweats nasal congestions interrupted sleep Objective: 07/19/18 11:49 Vital Signs Temperature 97.9 F 07/19/18 10:17 Pulse Rate 100 H 07/19/18 10:17 Respiratory Rate 17 07/19/18 10:17 Blood Pressure 116/65 07/19/18 10:17 O2 Sat by Pulse Oximetry (%) Laboratory Tests 07/18/18 07/18/18 07/18/18 15:00 15:00 16:40 WBC 6.4 RBC 4.56 Hgb 14.7 Hct 44.1 MCV 96.8 H MCH 32.1 MCHC 33.2 RDW 13.7 Plt Count 453 H MPV 8.3 Sodium 135 L Potassium 4.6 Chloride 98 Carbon Dioxide 30 Anion Gap 7 L BUN 6.2 L Creatinine 0.7 Est GFR (CKD-EPI)AfAm 107.62 Est GFR (CKD-EPI)NonAf 92.86 Random Glucose 111 H Calcium 10.0 Total Bilirubin 0.4 AST 11 L ALT 22 Alkaline Phosphatase 112 Total Protein 7.8 Albumin 4.6 Urine Color Yellow Urine Appearance Clear Urine pH 7.0 Ur Specific [place] 1.013 Urine Protein Negative Urine Glucose (UA) Negative Urine Ketones Negative Urine Blood Negative Urine Nitrite Negative Urine Bilirubin Negative Urine Urobilinogen 0.2 Ur Leukocyte Esterase Trace Urine WBC (Auto) 1 Urine RBC (Auto) 1 Urine Casts (Auto) 1 U Epithel Cells (Auto) 0.9 Urine Bacteria (Auto) 21.8 labs noted aaox3 ambulating no acute distress Assessment: 07/19/18 11:50 withdrawal sx Plan: continue detox increase fluids acitifed ordered pepto ordered
--- NOTE | 2018-07-19 16:59 | EKG ---
Test Reason : Blood Pressure : / mmHG Vent. Rate : 095 BPM Atrial Rate : 095 BPM P-R Int : 148 ms QRS Dur : 082 ms QT Int : 362 ms P-R-T Axes : 075 085 071 degrees QTc Int : 454 ms NORMAL SINUS RHYTHM NORMAL ECG WHEN COMPARED WITH ECG OF 24-APR-2017 14:52, NONSPECIFIC T WAVE ABNORMALITY NO LONGER EVIDENT IN INFERIOR LEADS Confirmed by MD Rivera, Hao ([id number]) on 07/19/2018 4:58:50 PM Referred By: TIA HORVATH Confirmed By:Hao Stafford MD
[2018-07-19] MEDS: THIAMINE HCL 100 MG TABLET (FP) PO SCH (22:30)
[2018-07-19] MEDS: MELATONIN 5 MG TABLETS PO PRN (22:30)
[2018-07-20] MEDS ORDERED: METHADONE HCL 10 MG TABLET (FOR DETOX USE ONLY) PO ONE (10:00)
[2018-07-20] MEDS: PRENATAL VITAMINS W/ FOLIC ACID TABLET (FP) PO SCH (10:22)
[2018-07-20] MEDS: diazePAM 5 MG TABLET PO PRN ×3 (10:23→22:46)
--- NOTE | 2018-07-20 11:34 | PN ---
BHS COWS - Scale Resting Pulse: 2= [place] 101-120 Sweatin=Flushed/Facial Moisture Restless Observation: 1= Difficult to Sit Still Pupil Size: 0= Normal to Room Light Bone or Joint Aches: 2= Severe Diffuse Aches Runny Nose/ Eye Tearin= None GI Upset > 30mins: 1= Stomach Cramp Tremor Observation of Outstretched Hands: 1= Tremor [place], Not Seen Yawning Observation: 0= None Anxiety or Irritability: 1=Feels Anxious/Irritable Goose Flesh Skin: 0=Smooth Skin COWS Score: 10 BHS Progress Note (SOAP) Subjective: anxiety sweats stomach cramping interrupted sleep Objective: 07/20/18 11:32 Vital Signs Temperature 99.0 F 07/20/18 10:02 Pulse Rate 103 H 07/20/18 10:02 Respiratory Rate 16 07/20/18 10:02 Blood Pressure 129/60 07/20/18 10:02 O2 Sat by Pulse Oximetry (%) Laboratory Tests 07/18/18 07/18/18 07/18/18 14:08 15:00 15:00 WBC 6.4 RBC 4.56 Hgb 14.7 Hct 44.1 MCV 96.8 H MCH 32.1 MCHC 33.2 RDW 13.7 Plt Count 453 H MPV 8.3 Sodium 135 L Potassium 4.6 Chloride 98 Carbon Dioxide 30 Anion Gap 7 L BUN 6.2 L Creatinine 0.7 Est GFR (CKD-EPI)AfAm 107.62 Est GFR (CKD-EPI)NonAf 92.86 Random Glucose 111 H Calcium 10.0 Total Bilirubin 0.4 AST 11 L ALT 22 Alkaline Phosphatase 112 Total Protein 7.8 Albumin 4.6 Urine Color Urine Appearance Urine pH Ur Specific [place] Urine Protein Urine Glucose (UA) Urine Ketones Urine Blood Urine Nitrite Urine Bilirubin Urine Urobilinogen Ur Leukocyte Esterase Urine WBC (Auto) Urine RBC (Auto) Urine Casts (Auto) U Epithel Cells (Auto) Urine Bacteria (Auto) POC Urine HCG, Qual Negative RPR Titer 07/18/18 07/18/18 15:00 16:40 WBC RBC Hgb Hct MCV MCH MCHC RDW Plt Count MPV Sodium Potassium Chloride Carbon Dioxide Anion Gap BUN Creatinine Est GFR (CKD-EPI)AfAm Est GFR (CKD-EPI)NonAf Random Glucose Calcium Total Bilirubin AST ALT Alkaline Phosphatase Total Protein Albumin Urine Color Yellow Urine Appearance Clear Urine pH 7.0 Ur Specific [place] 1.013 Urine Protein Negative Urine Glucose (UA) Negative Urine Ketones Negative Urine Blood Negative Urine Nitrite Negative Urine Bilirubin Negative Urine Urobilinogen 0.2 Ur Leukocyte Esterase Trace Urine WBC (Auto) 1 Urine RBC (Auto) 1 Urine Casts (Auto) 1 U Epithel Cells (Auto) 0.9 Urine Bacteria (Auto) 21.8 POC Urine HCG, Qual RPR Titer Nonreactive labs noted aaox3 ambulating no acute distress Assessment: 07/20/18 11:34 withdrawal sx Plan: continue detox increase fluids
[2018-07-20] MEDS: ACETAMINOPHEN 325 MG TABLET (FP) PO PRN (18:45)
[2018-07-20] MEDS: hydrOXYzine PAMOATE 25 MG CAPSULE (FP) PO PRN (22:21)
[2018-07-20] MEDS: IBUPROFEN 400 MG TABLET (FP) PO PRN (22:21)
[2018-07-20] MEDS: THIAMINE HCL 100 MG TABLET (FP) PO SCH (22:46)
[2018-07-21] MEDS: diazePAM 5 MG TABLET PO PRN ×2 (07:41→12:33)
[2018-07-21] MEDS: IBUPROFEN 400 MG TABLET (FP) PO PRN ×3 (07:42→23:48)
[2018-07-21] MEDS ORDERED: METHADONE HCL 5 MG TABLET (FOR DETOX USE ONLY) ONE (09:29)
[2018-07-21] MEDS ORDERED: METHADONE HCL 10 MG TABLET (FOR DETOX USE ONLY) ONE (09:30)
[2018-07-21] MEDS ORDERED: METHADONE HCL 10 MG TABLET (FOR DETOX USE ONLY) PO ONE (10:00)
[2018-07-21] MEDS ORDERED: METHADONE (DETOX) 10 MG, METHADONE (DETOX) 5 MG PO ONE (10:00)
[2018-07-21] MEDS: PRENATAL VITAMINS W/ FOLIC ACID TABLET (FP) PO SCH (11:04)
--- NOTE | 2018-07-21 12:18 | PN ---
BHS COWS - Scale Resting Pulse: 1= [place] 81-100 Sweatin= Chills/Flushing Restless Observation: 1= Difficult to Sit Still Pupil Size: 0= Normal to Room Light Bone or Joint Aches: 2= Severe Diffuse Aches Runny Nose/ Eye Tearin= Nasal Congestion GI Upset > 30mins: 0= None Tremor Observation of Outstretched Hands: 1= Tremor [place], Not Seen Yawning Observation: 1= 1-2x During Session Anxiety or Irritability: 1=Feels Anxious/Irritable Goose Flesh Skin: 0=Smooth Skin COWS Score: 9 BHS Progress Note (SOAP) Subjective: toothache sweats interrupted sleep Objective: 07/21/18 12:18 Vital Signs Temperature 97.7 F 07/21/18 09:21 Pulse Rate 92 H 07/21/18 09:21 Respiratory Rate 18 07/21/18 09:21 Blood Pressure 129/76 07/21/18 09:21 O2 Sat by Pulse Oximetry (%) Laboratory Tests 07/18/18 07/18/18 07/18/18 14:08 15:00 15:00 WBC 6.4 RBC 4.56 Hgb 14.7 Hct 44.1 MCV 96.8 H MCH 32.1 MCHC 33.2 RDW 13.7 Plt Count 453 H MPV 8.3 Sodium 135 L Potassium 4.6 Chloride 98 Carbon Dioxide 30 Anion Gap 7 L BUN 6.2 L Creatinine 0.7 Est GFR (CKD-EPI)AfAm 107.62 Est GFR (CKD-EPI)NonAf 92.86 Random Glucose 111 H Calcium 10.0 Total Bilirubin 0.4 AST 11 L ALT 22 Alkaline Phosphatase 112 Total Protein 7.8 Albumin 4.6 Urine Color Urine Appearance Urine pH Ur Specific [place] Urine Protein Urine Glucose (UA) Urine Ketones Urine Blood Urine Nitrite Urine Bilirubin Urine Urobilinogen Ur Leukocyte Esterase Urine WBC (Auto) Urine RBC (Auto) Urine Casts (Auto) U Epithel Cells (Auto) Urine Bacteria (Auto) POC Urine HCG, Qual Negative RPR Titer 07/18/18 07/18/18 15:00 16:40 WBC RBC Hgb Hct MCV MCH MCHC RDW Plt Count MPV Sodium Potassium Chloride Carbon Dioxide Anion Gap BUN Creatinine Est GFR (CKD-EPI)AfAm Est GFR (CKD-EPI)NonAf Random Glucose Calcium Total Bilirubin AST ALT Alkaline Phosphatase Total Protein Albumin Urine Color Yellow Urine Appearance Clear Urine pH 7.0 Ur Specific [place] 1.013 Urine Protein Negative Urine Glucose (UA) Negative Urine Ketones Negative Urine Blood Negative Urine Nitrite Negative Urine Bilirubin Negative Urine Urobilinogen 0.2 Ur Leukocyte Esterase Trace Urine WBC (Auto) 1 Urine RBC (Auto) 1 Urine Casts (Auto) 1 U Epithel Cells (Auto) 0.9 Urine Bacteria (Auto) 21.8 POC Urine HCG, Qual RPR Titer Nonreactive aaox3 ambulating no acute distress Assessment: 07/21/18 12:19 mild withdrawal sx Plan: continue detox increase fluids anbesol prn motrin prn
[2018-07-21] MEDS: BENZOCAINE 20 % GEL TUBE MM PRN ×2 (13:18→22:20)
[2018-07-21] MEDS: ACETAMINOPHEN 325 MG TABLET (FP) PO PRN (16:04)
[2018-07-21] MEDS: hydrOXYzine PAMOATE 25 MG CAPSULE (FP) PO PRN ×2 (16:54→22:18)
[2018-07-21] MEDS: MELATONIN 5 MG TABLETS PO PRN (22:18)
[2018-07-21] MEDS: THIAMINE HCL 100 MG TABLET (FP) PO SCH (22:19)
[2018-07-22] MEDS ORDERED: METHADONE HCL 5 MG TABLET (FOR DETOX USE ONLY) PO ONE (06:00)
[2018-07-22] MEDS: BENZOCAINE 20 % GEL TUBE MM PRN ×3 (08:30→22:27)
[2018-07-22] MEDS ORDERED: METHADONE HCL 10 MG TABLET (FOR DETOX USE ONLY) PO ONE (10:00)
[2018-07-22] MEDS: PRENATAL VITAMINS W/ FOLIC ACID TABLET (FP) PO SCH (10:44)
[2018-07-22] MEDS: hydrOXYzine PAMOATE 25 MG CAPSULE (FP) PO PRN ×3 (10:46→22:28)
[2018-07-22] MEDS: diazePAM 5 MG TABLET PO PRN ×3 (11:26→19:57)
--- NOTE | 2018-07-22 12:03 | PN ---
BHS COWS - Scale Resting Pulse: 1= [place] 81-100 Sweatin= No chills or Flushing Restless Observation: 0= Sits Still Pupil Size: 0= Normal to Room Light Bone or Joint Aches: 2= Severe Diffuse Aches Runny Nose/ Eye Tearin= None GI Upset > 30mins: 0= None Tremor Observation of Outstretched Hands: 1= Tremor [place], Not Seen Yawning Observation: 0= None Anxiety or Irritability: 2=Irritable/Anxious Goose Flesh Skin: 0=Smooth Skin COWS Score: 6 BHS Progress Note (SOAP) Subjective: toothache sweats irritable Objective: 07/22/18 12:02 Vital Signs Temperature 97.8 F 07/22/18 09:58 Pulse Rate 97 H 07/22/18 09:58 Respiratory Rate 18 07/22/18 09:58 Blood Pressure 112/64 07/22/18 09:58 O2 Sat by Pulse Oximetry (%) aaox3 ambulating no acute distress Assessment: 07/22/18 12:02 mild withdrawal sx Plan: continue detox increase fluids motrin 600mg prn anbesol prn
[2018-07-22] MEDS: IBUPROFEN 400 MG TABLET (FP) PO PRN (16:45)
[2018-07-22] MEDS: THIAMINE HCL 100 MG TABLET (FP) PO SCH (22:27)
[2018-07-22] MEDS: MELATONIN 5 MG TABLETS PO PRN (22:28)
[2018-07-23] MEDS: diazePAM 5 MG TABLET PO PRN ×2 (00:56→05:52)
[2018-07-23] MEDS: hydrOXYzine PAMOATE 25 MG CAPSULE (FP) PO PRN (05:56)
[2018-07-23] MEDS: BENZOCAINE 20 % GEL TUBE MM PRN (05:56)
[2018-07-23] MEDS ORDERED: METHADONE HCL 5 MG TABLET (FOR DETOX USE ONLY) PO ONE (06:00)
[2018-07-23] MEDS: IBUPROFEN 400 MG TABLET (FP) PO PRN (10:59)
[2018-07-23] MEDS: PRENATAL VITAMINS W/ FOLIC ACID TABLET (FP) PO SCH (11:03)
[2018-07-23 11:07] VITALS: BP 132/74; PULSE 92; TEMP 98.6
--- NOTE | 2018-07-23 11:38 | PN ---
S Progress Note (SOAP) Subjective: denies any complaint Objective: 07/23/18 11:36 A & O x 3 ambulatory with a steady gait no acute distress Vital Signs Temperature 98.6 F 07/23/18 10:06 Pulse Rate 92 H 07/23/18 10:06 Respiratory Rate 16 07/23/18 10:06 Blood Pressure 132/74 07/23/18 10:06 O2 Sat by Pulse Oximetry (%) Assessment: 07/23/18 11:37 detox completed Plan: for d/c
--- NOTE | 2018-07-23 11:41 | DS ---
[facility] Detox Discharge Summary Admission Date: 07/18/18 Discharge Date: 07/23/18 - History Additional Comments: Pt completed detox successfully States she will go to [facility] on WednesdayJuly 26 for aftercare rehab services Denies any home meds, denies any complaints Pt verbalized understanding to pick NArcan prescribed at [place] [facility] - Physical Exam Results Vital Signs: Vital Signs Temperature 98.6 F 07/23/18 10:06 Pulse Rate 92 H 07/23/18 10:06 Respiratory Rate 16 07/23/18 10:06 Blood Pressure 132/74 07/23/18 10:06 O2 Sat by Pulse Oximetry (%) Pertinent Admission Physical Exam Findings: withdrawal sx - Treatment Hospital Course: Detox Protocol Followed, Detoxed Safely, Responded well, Discharged Condition Good, Rehab Referral Accepted Patient has Accepted a Rehab Referral to: [facility] - Medication Discharge Medications: Ambulatory Orders Naloxone HCl [Narcan] 4 mg NS PRN #1 spray 07/23/18 - AMA Did Patient Leave Against Medical Advice: No
== END 2018-07-23 13:09 | disposition home or self-care (01) | DRG 773 ==
LOC: YASAS 10:39 → Y6N 15:26
PROVIDERS: ADMIT Surgery; ATTEND Surgery
PROC: HZ2ZZZZ Detoxification Services for Substance Abuse Treatment (ICD-10-PCS; principal; 2018-07-18)
DX: F11.23 Opioid dependence with withdrawal (principal); F17.210 Nicotine dependence, cigarettes, uncomplicated; F32.9 Major depressive disorder, single episode, unspecified; E86.0 Dehydration; R00.0 Tachycardia, unspecified; J43.9 Emphysema, unspecified; R63.4 Abnormal weight loss
CPT/HCPCS: 36415; 80053; 81003; 81025; 85027; 86593; 93005; 93010

== ENCOUNTER 2019-03-03 09:09 | Inpatient (IN) | payer OTHER ==
[2019-03-03 09:38] VITALS: BMI 20.2
--- NOTE | 2019-03-03 09:58 | HP ---
COWS - Scale Resting Pulse: 2= [place] 101-120 Sweatin= Chills/Flushing Restless Observation: 1= Difficult to Sit Still Pupil Size: 1= Pupils >than Normal Bone or Joint Aches: 2= Severe Diffuse Aches Runny Nose/ Eye Tearin= Runny Nose/Eyes GI Upset > 30mins: 3= Vomiting/Diarrhea Tremor Observation: 0= None Yawning Observation: 0= None Anxiety or Irritability: 1=Feels Anxious/Irritable Goose Flesh Skin: 0=Smooth Skin COWS Score: 13 CIWA Score - Admission Criteria OASAS Guidelines: Admission for Medically Managed Detox: Requires at least one of the followin. CIWA greater than 12 2. Seizures within the past 24 hours 3. Delirium tremens within the past 24 hours 4. Hallucinations within the past 24 hours 5. Acute intervention needed for co occurring medical disorder 6. Acute intervention needed for co occurring psychiatric disorder 7. Severe withdrawal that cannot be handled at a lower level of care (continued vomiting, continued diarrhea, abnormal vital signs) requiring intravenous medication and/or fluids 8. Admitting History and Physical - Smoking History Smoking history: Current every day smoker Have you smoked in the past 12 months: Yes Aproximately how many cigarettes per day: 4 - Alcohol/Substance Use Hx Alcohol Use: No Admission ROS [facility] Allergies/Adverse Reactions: Allergies Allergy/AdvReac Type Severity Reaction Status Date / Time No Known Allergies Allergy Verified 03/03/19 09:17 History of Present Illness: Search Terms: janell kelly, 1955 Search Date: 03/03/2019 09:50:32 AM The Drug Utilization Report below displays all of the controlled substance prescriptions, if any, that your patient has filled in the last twelve months. The information displayed on this report is compiled from pharmacy submissions to the Department, and accurately reflects the information as submitted by the pharmacies. This report was requested by: Elise Mishra | Reference #: [id number] There are no results for the search terms that you entered. pt here requesting detox from Percocet use , reports 210 pills/ month , on average 10-15 /day x 5 years , reports withdrawal symptoms if not using, tried to detox at home unsuccessfully . Denies OD . cannabis - occasional " when I am low on the Percocets " tobacco : 1/3 ppd denies other illicits or etoh PMHX : denies PSHX : ectopic 20's PShx : passive SI . Exam Limitations: No Limitations - Ebola screening Have you traveled outside of the country in the last 21 days: No Have you had contact with anyone from an Ebola affected area: No Do you have a fever: No - Review of Systems Constitutional: Loss of Appetite EENT: reports: No Symptoms Reported Respiratory: reports: Cough, Shortness of Breath (reports productive cough w/ clear or green- tinged sputum x 6 months), Productive cough Cardiac: reports: Palpitations GI: reports: Diarrhea, Nausea, Poor Appetite, Vomiting : reports: Frequency Musculoskeletal: reports: No Symptoms Reported Integumentary: reports: No Symptoms Reported Neuro: reports: No Symptoms reported Endocrine: reports: No Symptoms Reported Hematology: reports: No Symptoms Reported Psychiatric: reports: Orientated x3, Agitated, Anxious Patient History - Patient Medical History Hx Anemia: No Hx Asthma: No Hx Chronic Obstructive Pulmonary Disease (COPD): Yes (not treated ) Hx Cancer: No Hx Cardiac Disorders: No Hx Congestive Heart Failure: No Hx Hypertension: No Hx Hypercholesterolemia: No HX Cerebrovascular Accident: No Hx Seizures: No Hx Diabetes: No Hx Gastrointestinal Disorders: No Hx Liver Disease: No Hx Genitourinary Disorders: No Hx Sexually Transmitted Disorders: No Hx Renal Disease (ESRD): No Hx Thyroid Disease: No Hx Human Immunodeficiency Virus (HIV): No Hx Hepatitis C: No Hx Depression: Yes (since mother's 2013) Hx Suicide Attempt: No Hx Schizophrenia: No - Patient Surgical History Past Surgical History: Yes Hx Neurologic Surgery: No Hx Cataract Extraction: No Hx Cardiac Surgery: No Hx Lung Surgery: No Hx Breast Surgery: No Hx Breast Biopsy: No Hx Abdominal Surgery: No Hx Appendectomy: No Hx Cholecystectomy: No Hx Genitourinary Surgery: No Hx Section: No Hx Orthopedic Surgery: No Other Surgical History: TUBAL IN 1975 Anesthesia Reaction: No - PPD History Date: 06/07/13 Results: 0mm - Smoking Cessation Smoking history: Current every day smoker Have you smoked in the past 12 months: Yes Aproximately how many cigarettes per day: 4 Hx Chewing Tobacco Use: No Initiated information on smoking cessation: Yes 'Breaking Loose' booklet given: 03/03/19 - Substances abused Other Other (specify): percocet 10/325 Substance route: Oral Frequency: Daily Amount used: 10tabs Age of first use: 59 Date of last use: 03/02/19 Marijuana/Hashish Substance route: Smoking Frequency: Daily Amount used: half a joint Age of first use: 18 Date of last use: 03/03/19 Admission Physical Exam BHS - Vital Signs Vital Signs: Vital Signs - 24 hr 03/03/19 09:17 Temperature 98.2 F Pulse Rate 109 H Respiratory 20 Rate Blood Pressure 150/89 - Physical General Appearance: Yes: Moderate Distress, Anxious Respiratory: Yes: Decreased Breath Sounds, No Respiratory Distress, No Accessory Muscle Use, Crackles, Wheezing Neck: Yes: No masses,lesions,Nodules, Trachea in good position Cardiology: Yes: Regular Rhythm, Regular Rate, S1, S2, Tachycardia Abdominal: Yes: Soft, Other (mild suprapubic pain w/ palpation) Musculoskeletal: Yes: Gait Steady Extremities: Yes: Normal Range of Motion, Non-Tender Neurological: Yes: Fully Oriented, Alert, Motor Strength 5/5, Normal Mood/Affect Integumentary: Yes: Warm, Pale - Addiitonal Findings: pt sent to [facility] ER for SOB / 90 % SAT on RA / cough - Diagnostic (1) Opioid dependence with withdrawal Current Visit: Yes Status: Chronic Breathalyzer - Breathalyzer Breathalyzer: 0 Urine Drug Screen - Test Device Lot number: [id number] Expiration date: 09/07/20 - Control Is test valid?: Yes - Results Drug screen NEGATIVE: No Urine drug screen results: THC-Marijuana, OXY-Oxycodone Inpatient Rehab Admission - Rehab Decision to Admit Inpatient rehab admission?: No
[2019-03-03] MEDS ORDERED: ACETAMINOPHEN 325 MG TABLET (FP) PO PRN ×2 (13:37)
[2019-03-03] MEDS ORDERED: MAGNESIUM CITRATE 300 ML BOTTLE PO PRN (13:37)
[2019-03-03] MEDS ORDERED: IBUPROFEN 400 MG TABLET (FP) PO PRN (13:37)
[2019-03-03] MEDS ORDERED: BISMUTH SUBSALICYLATE 262 MG/15 ML BTL PO PRN (13:37)
[2019-03-03] MEDS ORDERED: MAG HYDROX/AL HYDROX/SIMETH 30 ML UNIT-DOSE CUP PO PRN (13:37)
[2019-03-03] MEDS ORDERED: P-EPHED 60MG/TRIPROLIDI 2.5MG TABLET PO PRN (13:37)
[2019-03-03] MEDS ORDERED: MAGNESIUM HYDROX 2400MG/30ML ORAL SUSPENSION 30 ML CUP PO PRN (13:37)
[2019-03-03] MEDS ORDERED: cloNIDine HCL 0.1 MG TABLET PO PRN (13:39)
[2019-03-03] MEDS ORDERED: METHADONE HCL 10 MG TABLET (FOR DETOX USE ONLY) PO ONE (13:39)
[2019-03-03] MEDS ORDERED: ALBUTEROL SO4 0.083% IH SOL 2.5 MG/3 ML VIAL.NEB. NEB PRN (13:40)
[2019-03-03] MEDS: ALBUTEROL SO4 HFA INHALER IH PRN (14:26)
--- NOTE | 2019-03-03 15:23 | PN ---
[facility] Progress Note Note: pt returned from the hospital ER , CXR done, dx COPD , advised f/up w/ pulmonary , pt verbalized understanding. Albuterol nebulizer and prn inhaler added as per hospital d/c instructions.
[2019-03-03] MEDS: hydrOXYzine PAMOATE 25 MG CAPSULE (FP) PO PRN (17:25)
[2019-03-03] MEDS: MELATONIN 5 MG TABLETS PO PRN (22:27)
[2019-03-03] MEDS: THIAMINE HCL 100 MG TABLET (FP) PO SCH (22:27)
[2019-03-04] MEDS: hydrOXYzine PAMOATE 25 MG CAPSULE (FP) PO PRN (01:54)
[2019-03-04] MEDS: ALBUTEROL SO4 HFA INHALER IH PRN ×2 (08:25→22:50)
[2019-03-04] MEDS ORDERED: METHADONE HCL 10 MG TABLET (FOR DETOX USE ONLY) ONE (09:49)
[2019-03-04] MEDS ORDERED: METHADONE HCL 5 MG TABLET (FOR DETOX USE ONLY) ONE (09:49)
[2019-03-04] MEDS ORDERED: METHADONE (DETOX) 20 MG, METHADONE (DETOX) 5 MG PO ONE (10:00)
[2019-03-04] MEDS: PRENATAL VITAMINS W/ FOLIC ACID TABLET (FP) PO SCH (10:41)
--- NOTE | 2019-03-04 13:12 | PN ---
[facility] COWS - Scale Resting Pulse: 1= [place] 81-100 Sweatin= Chills/Flushing Restless Observation: 1= Difficult to Sit Still Pupil Size: 0= Normal to Room Light Bone or Joint Aches: 2= Severe Diffuse Aches Runny Nose/ Eye Tearin= Nasal Congestion GI Upset > 30mins: 0= None Tremor Observation of Outstretched Hands: 2= Slight Tremor Visible Yawning Observation: 1= 1-2x During Session Anxiety or Irritability: 2=Irritable/Anxious Goose Flesh Skin: 0=Smooth Skin COWS Score: 11 BHS Progress Note (SOAP) Subjective: c/o chills, anxiety, muscle aches, and irritability. Objective: 03/04/19 13:13 Vital Signs 03/04/19 03/04/19 06:31 09:11 Temperature 98.6 F 98.7 F Pulse Rate 84 85 Respiratory 18 18 Rate Blood Pressure 107/68 112/74 Assessment: 03/04/19 13:14 AOX3, in no acute respiratory distress. Full ROM, ambulating in the unit. Withdrawal symptoms. Plan: continue detox.
--- NOTE | 2019-03-04 13:38 | CONSULT ---
[facility] Psychiatric Consult - Data Date of interview: 03/04/19 Admission source: [facility] Identifying data: Revisit to [facility] and admission to [address] [place] [address] for this 63 y/o female self-referred for detoxification treatment. HAKAN issues : cannabis, opiate, nicotine. 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 Substance Abuse History: Discused in this interview. Details in current [facility] report as follows : Smoking history: Current every day smoker. Have you smoked in the past 12 months: Yes. Aproximately how many cigarettes per day: 4. Hx Chewing Tobacco Use: No. Initiated information on smoking cessation: Yes. ' Breaking Loose' booklet given: 03/03/19. - Substances abused. Other. Other (specify): percocet . Substance route: Oral. Frequency: Daily. Amount used: 10tabs. Age of first use: 59. Date of last use: 03/02/19. Marijuana/Hashish. Substance route: Smoking. Frequency: Daily. Amount used: half a joint. Age of first use: 18. Date of last use: 03/03/19 Medical History: Medical profile is remarkable for COPD, GERD, antecedent of surgery for renal stones, chronic lumbar pain and a distant history of tubal ligation (1975). Psychiatric History: Patient denies history of psychiatric hospitalizations, OPD care or suicide attempts. Ms Joshi reports a brief encounter with Dr Greer at [facility]) in [facility] in 2018. Physical/Sexual Abuse/Trauma History: Not discussed in this session. Patient declines. Additional Comment: Urine drug screen results: THC-Marijuana, OXY-Oxycodone. Noted. Mental Status Exam - Mental Status Exam Alert and Oriented to: Time, Place, Person Cognitive Function: Good Patient Appearance: Well Groomed (thin frame, short stature) Mood: Anxious Affect: Appropriate, Normal Range Patient Behavior: Fatigued, Appropriate, Cooperative (medication-seeking behavior : asking for diazepam) Speech Pattern: Clear Voice Loudness: Normal Thought Process: Intact, Goal Oriented Thought Disorder: Not Present Hallucinations: Denies Suicidal Ideation: Denies Homicidal Ideation: Denies Insight/Judgement: Poor Sleep: Poorly, Difficulty falling asleep Appetite: Good Gait/Station: Normal Psychiatric Findings - Problem List ([place] 1, 2,3) (1) Opioid dependence with withdrawal Current Visit: Yes Status: Acute (2) Cannabis abuse Current Visit: Yes Status: Chronic (3) Nicotine dependence Current Visit: Yes Status: Chronic Qualifiers: Nicotine product type: cigarettes (4) Substance induced mood disorder Current Visit: Yes Status: Chronic (5) Insomnia Current Visit: Yes Status: Chronic - Initial Treatment Plan Initial Treatment Plan: Psychoeducation. Sleep hygiene. Detoxification. NA meetings. A number of hypnotic medications were discussed with the patient ( trazodone, quetiapine, mirtazapine, doxepin, suvorexant). Patient declines, insisting on diazepam as her preference. made aware of potential for habit- forming and dangers inherent to a withdrawal syndrome. Ms Joshi selected benadryl as an alternate. Benadryl 50 mg po hs prn is ordered. Side effects/ benefits are discussed with the patient. Gave consent (verbal) to MD. Cardoza.
[2019-03-04] MEDS: THIAMINE HCL 100 MG TABLET (FP) PO SCH (22:50)
[2019-03-04] MEDS: MELATONIN 5 MG TABLETS PO PRN (22:51)
[2019-03-04] MEDS ORDERED: diphenhydrAMINE HCL 25 MG CAPSULE (FP) PO ONE (23:09)
[2019-03-04] MEDS: diphenhydrAMINE HCL 50 MG CAPSULE PO PRN (23:13)
[2019-03-05] MEDS ORDERED: METHADONE HCL 10 MG TABLET (FOR DETOX USE ONLY) PO ONE (10:00)
[2019-03-05] MEDS: PRENATAL VITAMINS W/ FOLIC ACID TABLET (FP) PO SCH (10:22)
--- NOTE | 2019-03-05 13:03 | PN ---
[facility] COWS - Scale Resting Pulse: 2= AR 101-120 Sweatin= Chills/Flushing Restless Observation: 0= Sits Still Pupil Size: 1= Pupils >than Normal Bone or Joint Aches: 1= Mild Discomfort Runny Nose/ Eye Tearin= None GI Upset > 30mins: 1= Stomach Cramp Tremor Observation of Outstretched Hands: 1= Tremor [place], Not Seen Yawning Observation: 0= None Anxiety or Irritability: 1=Feels Anxious/Irritable Goose Flesh Skin: 0=Smooth Skin COWS Score: 8 BHS Progress Note (SOAP) Subjective: 63 yeasr old female admitted on 03/03/19 for opiate withdrawal sx management treating with metahdone detox regiment reports trouble to fall a sleep at night belsomra 5 mg po x 1 states that Mrs. Joshi goes to bed around 7-8 pm daily order belsomra around 9 pm Objective: 03/05/19 13:05 Vital Signs Temperature 99.2 F 03/05/19 09:23 Pulse Rate 111 H 03/05/19 09:23 Respiratory Rate 18 03/05/19 09:23 Blood Pressure 110/61 03/05/19 09:23 O2 Sat by Pulse Oximetry (%) 03/05/19 13:06 lab see ER 03/03/19 report Assessment: 03/05/19 13:06 opiate withdrawal Plan: methadone regimen
[2019-03-05] MEDS: MENTHOL/PHENOL 1 EACH UD MM PRN (17:34)
[2019-03-05] MEDS: guaiFENesin 200 MG/10 ML 10 ML UNIT-DOSE CUPS PO PRN (17:35)
[2019-03-05] MEDS ORDERED: SUVOREXANT 5 MG TABLET PO ONE ×2 (21:00→22:00)
[2019-03-05] MEDS: THIAMINE HCL 100 MG TABLET (FP) PO SCH (21:01)
[2019-03-06] MEDS: diphenhydrAMINE HCL 50 MG CAPSULE PO PRN (01:44)
[2019-03-06] MEDS ORDERED: METHADONE HCL 10 MG TABLET (FOR DETOX USE ONLY) ONE (09:05)
[2019-03-06] MEDS ORDERED: METHADONE HCL 5 MG TABLET (FOR DETOX USE ONLY) ONE (09:06)
[2019-03-06] MEDS ORDERED: METHADONE (DETOX) 10 MG, METHADONE (DETOX) 5 MG PO ONE (10:00)
[2019-03-06] MEDS: PRENATAL VITAMINS W/ FOLIC ACID TABLET (FP) PO SCH (10:14)
--- NOTE | 2019-03-06 14:33 | PN ---
BHS COWS - Scale Resting Pulse: 0= [place] 80 or Below Sweatin= Chills/Flushing Restless Observation: 0= Sits Still Pupil Size: 1= Pupils >than Normal Bone or Joint Aches: 1= Mild Discomfort Runny Nose/ Eye Tearin= None GI Upset > 30mins: 0= None Tremor Observation of Outstretched Hands: 1= Tremor [place], Not Seen Yawning Observation: 0= None Anxiety or Irritability: 1=Feels Anxious/Irritable Goose Flesh Skin: 0=Smooth Skin COWS Score: 5 BHS Progress Note (SOAP) Subjective: 63 years old female admitted on 03/03/19 for opiate withdrawal sx management treating with methadone detox regimen reports that belsomra 5 mg not effective order belsomra 10 mg po hs Objective: 03/06/19 14:33 Vital Signs Temperature 98.7 F 03/06/19 13:20 Pulse Rate 75 03/06/19 13:20 Respiratory Rate 18 03/06/19 13:20 Blood Pressure 117/73 03/06/19 13:20 O2 Sat by Pulse Oximetry (%) 03/06/19 14:34 lab see 03/03/19 ER result Assessment: 03/06/19 14:35 opiate withdrawal Plan: methadone regimen
[2019-03-06] MEDS: THIAMINE HCL 100 MG TABLET (FP) PO SCH (21:36)
[2019-03-06] MEDS: ALBUTEROL SO4 HFA INHALER IH PRN (21:36)
[2019-03-06] MEDS: guaiFENesin 200 MG/10 ML 10 ML UNIT-DOSE CUPS PO PRN (21:37)
[2019-03-06] MEDS ORDERED: SUVOREXANT 10 MG TABLET PO ONE (22:00)
[2019-03-07] MEDS: guaiFENesin 200 MG/10 ML 10 ML UNIT-DOSE CUPS PO PRN (06:00)
[2019-03-07] MEDS: MENTHOL/PHENOL 1 EACH UD MM PRN (06:00)
[2019-03-07 09:11] VITALS: BP 110/65; PULSE 85; TEMP 97.3
[2019-03-07] MEDS: PRENATAL VITAMINS W/ FOLIC ACID TABLET (FP) PO SCH (09:55)
[2019-03-07] MEDS ORDERED: METHADONE HCL 10 MG TABLET (FOR DETOX USE ONLY) PO ONE (10:00)
--- NOTE | 2019-03-07 13:10 | DS ---
[facility] Detox Discharge Summary Admission Date: 03/03/19 Discharge Date: 03/07/19 - History Present History: Opioid Dependence Additional Comments: 63 years old female admitted on 03/03/19 for opiate withdrawal sx management treated with methadone detox regimen patient has received methadone 10mg today and tolerated well alert oriented x 3 patient agrees to consider medication assisted treatment program cardiac s1s2 regular rate rhythm respiratory clear lungs bilaterally on auscultation reports had good night sleep feeling much better extremities full range of motion Pertinent Past History: patient insists to leave the detox one day early as per estimated discharge day of 03/08/19 case discussed with the nurse routine discharge is appropriated - Physical Exam Results Vital Signs: Vital Signs Temperature 97.3 F L 03/07/19 09:11 Pulse Rate 85 03/07/19 09:11 Respiratory Rate 18 03/07/19 09:11 Blood Pressure 110/65 03/07/19 09:11 O2 Sat by Pulse Oximetry (%) Pertinent Admission Physical Exam Findings: opiate withdrawal see 03/03/19 ER lab result - Treatment Hospital Course: Detox Protocol Followed, Detoxed Safely, Responded well, Discharged Condition Good, Rehab Referral Accepted Patient has Accepted a Rehab Referral to: [facility] - Medication Discharge Medications: Ambulatory Orders Naloxone HCl [Narcan] 4 mg NS ASDIR PRN #1 spray 03/07/19 - Diagnosis (1) Opioid dependence with withdrawal Current Visit: Yes Status: Acute (2) Nicotine dependence Current Visit: Yes Status: Acute Qualifiers: Nicotine product type: cigarettes Substance use status: in withdrawal Qualified Code(s): F17.213 - Nicotine dependence, cigarettes, with withdrawal (3) Substance induced mood disorder Current Visit: Yes Status: Suspected (4) COPD (chronic obstructive pulmonary disease) Current Visit: Yes Status: Chronic Qualifiers: COPD type: emphysema Emphysema type: unilateral Qualified Code(s): J43.0 - Unilateral pulmonary emphysema [MacLeod's syndrome] (5) Weight loss Current Visit: Yes Status: Acute (6) Emphysematous COPD Current Visit: Yes Status: Chronic Qualifiers: Emphysema type: unilateral Qualified Code(s): J43.0 - Unilateral pulmonary emphysema [MacLeod's syndrome] - AMA Did Patient Leave Against Medical Advice: No COWS (PN) - Opiate Withdrawal Resting Pulse: 1= [place] 81-100 Sweatin= No chills or Flushing Restless Observation: 0= Sits Still Pupil Size: 0= Normal to Room Light Bone or Joint Aches: 0= None Runny Nose/ Eye Tearin= None GI Upset > 30mins: 2= Nausea/Diarrhea Tremor Observation of Outstretched Hands: 0= None Yawning Observation: 0= None Anxiety or Irritability: 0= None Goose Flesh Skin: 0=Smooth Skin COWS Score: 3
[2019-03-08] MEDS ORDERED: METHADONE HCL 5 MG TABLET (FOR DETOX USE ONLY) PO ONE (06:00)
== END 2019-03-07 11:02 | disposition home or self-care (01) | DRG 773 ==
LOC: YASAS 09:09 → Y3N 13:54
PROVIDERS: ADMIT Allergy & Immunology; ATTEND Allergy & Immunology
PROC: HZ2ZZZZ Detoxification Services for Substance Abuse Treatment (ICD-10-PCS; principal; 2019-03-03)
DX: F11.23 Opioid dependence with withdrawal (principal); F12.10 Cannabis abuse, uncomplicated; F17.213 Nicotine dependence, cigarettes, with withdrawal; F19.24 Other psychoactive substance dependence with psychoactive substance-induced mood disorder; J43.0 Unilateral pulmonary emphysema [MacLeod's syndrome]; R63.4 Abnormal weight loss; G47.00 Insomnia, unspecified; K21.9 Gastro-esophageal reflux disease without esophagitis; R00.0 Tachycardia, unspecified
CPT/HCPCS: 94640

== ENCOUNTER 2019-03-03 11:04 | Emergency (ER) | payer OTHER ==
[2019-03-03 11:28] VITALS: TEMP 98.3; BMI 20.2
[2019-03-03] MEDS ORDERED: ALBUTEROL SO4 2.5/IPRATROPIUM 0.5 INH SOL 3 ML VIAL.NEB. NEB ONE ×2 (11:38)
[2019-03-03 11:55] VITALS: BP 160/96; PULSE 93
--- NOTE | 2019-03-03 11:59 | PDOC ---
History of Present Illness - General Chief Complaint: Shortness of Breath Stated Complaint: SHORTNESS OF BREATH Time Seen by Provider: 03/03/19 11:33 History Source: Patient Exam Limitations: No Limitations - History of Present Illness Initial Comments: 03/03/19 12:06 63yo F PMH substance abuse (percocet, tobacco) presenting form [facility] for poor O2 Sat. Past History - Past Medical History Allergies/Adverse Reactions: Allergies Allergy/AdvReac Type Severity Reaction Status Date / Time No Known Allergies Allergy Verified 03/03/19 09:17 Home Medications: Ambulatory Orders NK [No Known Home Medication] 03/03/19 Anemia: No Asthma: No Cancer: No Cardiac Disorders: No CVA: No COPD: Yes (not treated, PT DENIES) CHF: No Diabetes: No GI Disorders: No Disorders: No HTN: No Hypercholesterolemia: No Kidney Stones: Yes Liver Disease: No Seizures: No Thyroid Disease: No - Surgical History Abdominal Surgery: No Appendectomy: No Cardiac Surgery: No Cholecystectomy: No Lung Surgery: No Neurologic Surgery: No Orthopedic Surgery: No - Reproductive History PID: No - Psycho Social/Smoking Cessation Hx Smoking History: Current every day smoker Have you smoked in the past 12 months: Yes Number of Cigarettes Smoked Daily: 4 Information on smoking cessation initiated: No 'Breaking Loose' booklet given: 07/18/18 Hx Alcohol Use: No Drug/Substance Use Hx: Yes (PERCOCET) Substance Use Type: Marijuana, Opiates Hx Substance Use Treatment: Yes ([facility] 04/24/17 to 04/29/17) *Physical Exam - Vital Signs Last Vital Signs Temp Pulse Resp BP Pulse Ox 98.3 F 97 H 18 165/127 H 100 03/03/19 11:25 03/03/19 11:25 03/03/19 11:25 03/03/19 11:25 03/03/19 11:25 ED Treatment Course - LABORATORY CBC & Chemistry Diagram: 03/03/19 11:45 03/03/19 11:45 Discharge - Follow up/Referral Referrals: Aislinn Cisneros [Primary Care Provider] - - Patient Discharge Instructions - Post Discharge Activity
[2019-03-03 12:05] LABS: BASO % 1.2 % (0-2.0); EOS % 0.2 % (0-4.5); HEMATOCRIT 43.5 % (32.4-45.2); HEMOGLOBIN 14.6 GM/dL (10.7-15.3); MCH 32.2 pg (25.7-33.7); MCHC 33.6 g/dl (32.0-36.0); MEAN CELL VOLUME 95.8 fl (80-96); MEAN PLT VOLUME 8.1 fl (7.5-11.1); MONO % 5.5 % (3.8-10.2); NEUT % 66.1 % (42.8-82.8); PLATELET COUNT 463 K/MM3 (134-434); RBC 4.54 M/mm3 (3.60-5.2); RDW 13.2 % (11.6-15.6); WHITE BLOOD COUNT 8.3 K/mm3 (4.0-10.0)
[2019-03-03 12:37] LABS: ALBUMIN 4.2 g/dl (3.4-5.0); BILIRUBIN,TOTAL 0.3 mg/dL (0.2-1); BLOOD UREA NITROGEN 9.1 mg/dL (7-18); CALCIUM 9.9 mg/dL (8.5-10.1); CREATININE 0.6 mg/dL (0.55-1.3); POTASSIUM 4.2 mmol/L (3.5-5.1); TOT PROT 7.5 g/dl (6.4-8.2)
--- NOTE | 2019-03-03 13:03 | PDOC ---
Documentation entered by Francesca Strong SCRIBE, acting as scribe for Foster Linares MD. Foster Linares MD: This documentation has been prepared by the Tae diaz Adrianna, SCRIBE, under my direction and personally reviewed by me in its entirety. I confirm that the documentation accurately reflects all work, treatment, procedures, and medical decision making performed by me. History of Present Illness - General Chief Complaint: Shortness of Breath Stated Complaint: SHORTNESS OF BREATH Time Seen by Provider: 03/03/19 11:33 - History of Present Illness Initial Comments: The patient is a 63 year old female, with a significant PMH of polysubstance abuse (percocets and cannabis), COPD, and kidney stones, who presents to the ED from [facility] for evaluation low O2 sat and abdominal pain. Patient was seeking detox from opiate use, and upon initial screen at [facility] was found to have an O2 sat in the low 90s (not on home O2, but is a daily smoker). She endorses feeling congested with a productive cough of clear sputum. Patient additionally complains of diffuse lower abdominal cramping, which she notes is a typical symptoms she experiences when trying to detox. Allergies: NKA, NKDA Surgical History: None reported Social History: Opiate abuse. Cannabis use. Daily smoker. PCP: Dr. Aislinn Cisneros Past History - Past Medical History Allergies/Adverse Reactions: Allergies Allergy/AdvReac Type Severity Reaction Status Date / Time No Known Allergies Allergy Verified 03/03/19 09:17 Home Medications: Ambulatory Orders NK [No Known Home Medication] 03/03/19 Anemia: No Asthma: No Cancer: No Cardiac Disorders: No CVA: No COPD: Yes (not treated, PT DENIES) CHF: No Diabetes: No GI Disorders: No Disorders: No HTN: No Hypercholesterolemia: No Kidney Stones: Yes Liver Disease: No Seizures: No Thyroid Disease: No - Surgical History Abdominal Surgery: No Appendectomy: No Cardiac Surgery: No Cholecystectomy: No Lung Surgery: No Neurologic Surgery: No Orthopedic Surgery: No - Reproductive History PID: No - Psycho Social/Smoking Cessation Hx Smoking History: Current every day smoker Have you smoked in the past 12 months: Yes Number of Cigarettes Smoked Daily: 4 Information on smoking cessation initiated: No 'Breaking Loose' booklet given: 07/18/18 Hx Alcohol Use: No Drug/Substance Use Hx: Yes (PERCOCET) Substance Use Type: Marijuana, Opiates Hx Substance Use Treatment: Yes ([facility] 04/24/17 to 04/29/17) Respiratory Specific PMHX - Complaint Specific PMHX Hx TB (Tuberculosis): No Review of Systems - Review of Systems Comments:: ROS: A complete review of 10 out of 10 review of systems is taken and is negative apart from what is previously mentioned below and in the HPI. Constitutional: No fever or chills ENT: +Congested. No sore throat Cardiovascular: No palpitations; no chest pain Pulmonary: +Cough productive of clear sputum. +Low O2 sat (low 90s). No trouble breathing Gastrointestinal: +Diffuse lower abdominal cramping. No nausea; no vomiting; no diarrhea Genitourinary: No urinary problems; no hematuria Skin: No rash Lymph system: No swollen glands Musculoskeletal: No joint swelling Neurological: No weakness; oo numbness; No Headache; no vertigo; no lightheadedness Psychiatric:No anxiety; no depression *Physical Exam - Vital Signs Last Vital Signs Temp Pulse Resp BP Pulse Ox 98.3 F 97 H 18 165/127 H 100 03/03/19 11:25 03/03/19 11:25 03/03/19 11:25 03/03/19 11:25 03/03/19 11:25 - Physical Exam Vitals: Triage vital signs reviewed General Appearance: No acute distress, well nourished, well developed Cardiac: Regular rate and rhythm, no murmurs, no rubs, no gallops Lungs: +Slight wheezing at the end bases of the bilateral lungs. Clear to auscultation bilateral, good air movement bilaterally Abdomen: +Mild diffuse abdominal tenderness to palpation. Soft, nondistended, normal bowel sounds. No guarding or rebound. Extremities: Full range of motion to all extremities, no cyanosis, clubbing, or edema Skin: Warm and dry, no rashes or lesions, no rash, no petechiae Neuro: AOX3; Cranial Nerves 2-12 grossly intact, Strength intact to all extremities, Sensation intact to all extremities. Psych: Normal mood, normal affect ED Treatment Course - LABORATORY CBC & Chemistry Diagram: 03/03/19 11:45 03/03/19 11:45 - ADDITIONAL ORDERS Additional order review: Laboratory Results 03/03/19 11:45 Sodium 137 Potassium 4.2 Chloride 102 Carbon Dioxide 28 Anion Gap 7 L BUN 9.1 Creatinine 0.6 Est GFR (CKD-EPI)AfAm 112.43 Est GFR (CKD-EPI)NonAf 97.01 Random Glucose 110 H Calcium 9.9 Total Bilirubin 0.3 AST 14 L ALT 21 Alkaline Phosphatase 102 Total Protein 7.5 Albumin 4.2 03/03/19 11:45 RBC 4.54 MCV 95.8 MCHC 33.6 RDW 13.2 MPV 8.1 Neutrophils % 66.1 Lymphocytes % 27.0 Monocytes % 5.5 Eosinophils % 0.2 Basophils % 1.2 - RADIOLOGY Radiology Studies Ordered: Category Date Time Status CHEST PA & LAT [RAD] Stat Radiology 03/03/19 11:38 Taken - Medications Given in the ED: ED Medications Discontinued Medications Generic Name Dose Route Start Last Admin Trade Name Freq PRN Reason Stop Dose Admin Albuterol/Ipratropium 3 amp 03/03/19 11:38 03/03/19 11:49 Duoneb - NEB 03/03/19 11:39 3 amp ONCE ONE Administration Medical Decision Making - Medical Decision Making 63 year old female with history of polysubstance abuse (percocets and cannabis) , COPD, and kidney stones, presents to the ED with low O2 sat and abdominal pain . Plan: Labs, flu swab, chest X-Ray, duoneb, reassess. 03/03/19 13:20 No fever no white count no pneumonia on x-ray history and examination likely COPD undiagnosed patient will require pulmonary consultation when discharged from rehab in the interim can use Ventolin nebulizer or MDI as needed every 4 to 6 hours as needed. Patient medically cleared to return to [facility]. Discharge - Discharge Information Problems reviewed: Yes Clinical Impression/Diagnosis: COPD (chronic obstructive pulmonary disease) Qualifiers: COPD type: unspecified COPD Qualified Code(s): J44.9 - Chronic obstructive pulmonary disease, unspecified Condition: Fair - Admission No - Follow up/Referral Referrals: Aislinn Cisneros [Primary Care Provider] - Khai Mg MD [Staff Physician] - - Patient Discharge Instructions Patient Printed Discharge Instructions: Chronic Obstructive Pulmonary Disease Additional Instructions: No fever no white count influenza negative chest x-ray with no evidence of pneumonia history and examination consistent with chronic cough likely secondary to COPD PRN albuterol every 4 to 6 hours as needed and pulmonology follow-up when patient is discharged from rehab - Post Discharge Activity
== END 2019-03-03 13:19 | disposition home or self-care (01) ==
LOC: JER 11:04
DX: J06.9 Acute upper respiratory infection, unspecified (principal)
CPT/HCPCS: 36415; 71046-TC-FY; 80053; 85025; 87804; 99282-25